=== PATIENT | female | born 1930 | race African-American/Black ===

== ENCOUNTER 2017-01-30 14:29 | Emergency (ER) | payer MEDICARE, BC ==
[~2017-01-30] VITALS: Ht 165.1 cm; Wt 75.0 kg
[~2017-01-30 14:29] MED LIST: BRIM5DRO6 BOTHEYE; NAPR375T5 PO; PANT40TA4 PO; TRU10 BOTHEYE
[2017-01-30 14:48] VITALS: BP 135/61
== END 2017-01-30 17:59 | disposition left against medical advice (07) ==
LOC: ER 14:30
DX: R53.1 Weakness (principal); Z53.21 Procedure and treatment not carried out due to patient leaving prior to being seen by health care provider